=== PATIENT | female | born 1955 | race Caucasian/White ===

== ENCOUNTER 2016-10-12 13:19 | Outpatient (CLI) | payer BC | END 2016-10-12 13:20 | disposition home or self-care (01) | DX: Z12.31 Encounter for screening mammogram for malignant neoplasm of breast (principal) ==

== ENCOUNTER 2017-04-12 11:27 | Outpatient (CLI) | payer BC ==
--- NOTE | 2017-04-12 15:51 | XRAY Report ---
THREE VIEW CERVICAL SPINE: 04/12/2017 CLINICAL INDICATION: Chronic pain. FINDINGS: AP, lateral, and odontoid views of the cervical spine demonstrate moderate degenerative di sk disease, with disk space narrowing worst at C5-6. There is no evidence of acute fracture or sublux ation. The prevertebral soft tissues are unremarkable. IMPRESSION: MODERATE DEGENERATIVE CHANGES. JOB #: [id number] EXT JOB #:[id number]
--- NOTE | 2017-04-12 15:53 | XRAY Report ---
THREE VIEW THORACIC SPINE: 04/12/2017 CLINICAL INDICATION: Chronic pain. FINDINGS: AP, lateral, and swimmers views of the thoracic spine demonstrate moderate degenerative di sk disease. There is no evidence of compression fracture. No paraspinal hematoma is seen. IMPRESSION: MODERATE DEGENERATIVE CHANGES. JOB #: [id number] EXT JOB #:[id number]
--- NOTE | 2017-04-12 15:55 | XRAY Report ---
THREE VIEW LUMBAR SPINE: 04/12/2017 CLINICAL INDICATION: Chronic pain. FINDINGS: AP, lateral, and coned down views of the lumbar spine demonstrate mild degenerative disk a nd facet disease, with mild degenerative dextroscoliosis. There is no evidence of compression fractur e or subluxation. The bowel gas pattern is unremarkable. IMPRESSION: MILD DEGENERATIVE CHANGES, WITH MILD DEGENERATIVE DEXTROSCOLIOSIS. JOB #: [id number] EXT JOB #:[id number]
== END 2017-04-12 11:28 | disposition home or self-care (01) ==
LOC: DI.N 11:27
PROVIDERS: ATTEND Physician Assistant Medical
DX: M50.30 Other cervical disc degeneration, unspecified cervical region (principal); M51.34 Other intervertebral disc degeneration, thoracic region; M51.36 Other intervertebral disc degeneration, lumbar region; M47.896 Other spondylosis, lumbar region; M41.56 Other secondary scoliosis, lumbar region
CPT/HCPCS: 72040; 72072; 72100

== ENCOUNTER 2017-10-19 16:29 | Outpatient (CLI) | payer BC ==
--- NOTE | 2017-10-24 17:24 | Mammography Report ---
DIGITAL SCREENING MAMMOGRAM: 10/19/2017 CLINICAL INDICATION: A 62-year-old with history of late childbearing for screening. COMPARISON: 09/2016, 07/2015, 07/2014, 06/2010. TECHNIQUE: Routine CC and MLO projections were obtained of the breasts. FINDINGS: The breasts again demonstrate heterogeneously dense fibroglandular parenchyma bilaterally. A few punctate, typically benign calcifications are present. No suspicious masses, clustered microcalcifications, or regions of architectural distortion are identified. IMPRESSION: BENIGN FINDINGS. RECOMMENDATION: Routine annual screening unless otherwise clinically indicated. BIRADS category 2 benign findings. STANDARD QUALIFYING STATEMENTS 1. This examination was reviewed with the aid of Computed-Aided Detection (CAD). 2. A negative or benign imaging report should not delay biopsy if clinically suspicious findings are present. Consider surgical consultation if warranted. More than 5% of cancers are not identified by imaging. 3. Dense breasts may obscure an underlying neoplasm. TD: 10/24/2017 15:26
== END 2017-10-19 16:30 | disposition home or self-care (01) ==
LOC: DI.N 16:29
PROVIDERS: ATTEND Physician Assistant Medical
DX: Z12.31 Encounter for screening mammogram for malignant neoplasm of breast (principal)
CPT/HCPCS: 77067

== ENCOUNTER 2020-06-25 11:22 | Outpatient (CLI) | payer MEDICARE, OTHER ==
--- NOTE | 2020-06-25 16:49 | XRAY Report ---
PROCEDURE: Cervical Spine 2 View INDICATIONS: CHRONIC NECK PAIN TECHNIQUE: 3 view(s) of the cervical spine were acquired. COMPARISON: 04/12/2017 FINDINGS: Bones: No fractures or dislocations to the T5 level. The lateral masses of C1 appear intact on the odontoid view. No suspicious bony lesions. Multilevel cervical spondylitic changes are again noted with degenerative endplate changes and endplate osteophyte formation. Findings are most pronounced at C5-6 as before. No acute compression fractures. Soft tissues: No prevertebral soft tissue swelling. IMPRESSION: Multilevel cervical spondylosis most pronounced at C5-6. Degenerative changes have remained stable to slight interval progression. Reviewed by: Seferino Doll MD on 06/25/2020 4:48 PM PST Approved by: Seferino Doll MD on 06/25/2020 4:48 PM PST Station ID: [id number]
--- NOTE | 2020-06-25 16:51 | XRAY Report ---
PROCEDURE: Thoracic Spine 3 View INDICATIONS: THORACIC BACK PAIN TECHNIQUE: 3 views of the thoracic spine were acquired. COMPARISON: 04/12/2017. FINDINGS: Bones: No acute fractures or dislocations. No suspicious bony lesions. 12 pairs of ribs are noted, and appear intact where visualized. Stable appearance of mild multilevel thoracic spondylitic loomis es with degenerative endplate changes and prominent anterior endplate osteophyte formation. Soft tissues: No paravertebral stripe thickening. IMPRESSION: Stable radiographic appearance of multilevel thoracic spondylosis. Reviewed by: Seferino Doll MD on 06/25/2020 4:49 PM PST Approved by: Seferino Doll MD on 06/25/2020 4:49 PM PST Station ID: [id number]
== END 2020-06-25 23:59 | disposition home or self-care (01) ==
LOC: DI.WCP 11:22
PROVIDERS: ATTEND Physician Assistant Medical
DX: M47.812 Spondylosis without myelopathy or radiculopathy, cervical region (principal); M50.322 Other cervical disc degeneration at C5-C6 level; M47.814 Spondylosis without myelopathy or radiculopathy, thoracic region

== ENCOUNTER 2020-09-15 08:00 | Outpatient (CLI) | payer MEDICARE, OTHER ==
[2020-09-15 13:39] LABS: CHOL/HDL RATIO 2.7 (<4.4); CHOLESTEROL 252 mg/dL; HDL CHOLESTEROL 94 mg/dL; LDL CHOLESTEROL,CALCULATED 139 mg/dL; LDL/HDL RATIO 1.5 (<4.4); TRIGLYCERIDES 93 mg/dL; VLDL CHOLESTEROL 19 mg/dL
== END 2020-09-15 23:59 | disposition home or self-care (01) ==
LOC: LAB.WCP 08:00
PROVIDERS: ATTEND Physician Assistant Medical
DX: E78.2 Mixed hyperlipidemia (principal)
CPT/HCPCS: 36415; 80061; 83721

== ENCOUNTER 2021-01-28 15:04 | Outpatient (CLI) | payer MEDICARE, OTHER ==
--- NOTE | 2021-01-29 12:21 | Mammography Report ---
BILATERAL DIGITAL SCREENING MAMMOGRAM 3D/2D: 01/28/2021 CLINICAL: Routine screening. Comparison is made to exams dated: 10/19/2017 mammogram, 10/12/2016 mammogram, 08/27/2015 mammogram, mammogram - [facility], and 07/12/2010 mammogram - [facility]. There a re scattered fibroglandular elements in both breasts. No significant masses, calcifications, or other findings are seen in either breast. There has been no significant interval change. IMPRESSION: NEGATIVE There is no mammographic evidence of malignancy. A 1 year screening mammogram is recommended. This exam was interpreted at Station ID: [id number]. NOTE: For mammograms, a report in lay terms will be sent to the patient. Approximately 15% of breast malignancies will not be visualized mammographically. In the management of a palpable breast mass, a negative mammogram must not discourage biopsy of a clinically suspicious lesion. Electronically Signed By: Seferino [email or web address]:01/28/2021 16:22:30 ACR BI-RADS Category 1: Negative 3341F PARENCHYMAL PATTERN: (A) - The breast(s) demonstrate(s) scattered fibroglandular densities. BI-RADS CATEGORY: (1) - 1 RECOMMENDATION: (ANNUAL) - Recommend routine annual screening mammography. [id number] 1 year screening LATERALITY: (B)
== END 2021-01-28 15:05 | disposition home or self-care (01) ==
LOC: DI.N 15:04
DX: Z12.31 Encounter for screening mammogram for malignant neoplasm of breast (principal)

== ENCOUNTER 2021-07-29 08:39 | Outpatient (CLI) | payer MEDICARE ==
[2021-07-29 13:00] LABS: ALBUMIN 4.7 g/dL (3.2-5.5); ALBUMIN/GLOBULIN RATIO 1.8 (1.0-2.2); ALKALINE PHOSPHATASE 55 IU/L (42-121); ALT ALANINE AMINOTRANSFERASE 17 IU/L (10-60); AST ASPARTATE AMINOTRANSFERASE 22 IU/L (10-42); BILIRUBIN,TOTAL 1.1 mg/dL (0.2-1.0); BUN - BLOOD UREA NITROGEN 22 mg/dL (6-20); CALCIUM 9.3 mg/dL (8.5-10.3); CARBON DIOXIDE - CO2 27 mmol/L (21-32); CHLORIDE 101 mmol/L (101-111); CHOL/HDL RATIO 4.1 (<4.4); CHOLESTEROL 297 mg/dL; CREATININE 0.8 mg/dL (0.4-1.0); GFR - MDRD 72 (>89); GLUCOSE 99 mg/dL (70-100); HDL CHOLESTEROL 72 mg/dL; LDL CHOLESTEROL,CALCULATED 210 mg/dL; LDL/HDL RATIO 2.9 (<4.4); SODIUM 138 mmol/L (135-145); TOTAL PROTEIN 7.3 g/dL (6.7-8.2); TRIGLYCERIDES 77 mg/dL; VLDL CHOLESTEROL 15 mg/dL
== END 2021-07-29 08:40 | disposition home or self-care (01) ==
LOC: LAB.N 08:39
PROVIDERS: ATTEND Physician Assistant Medical
DX: E78.2 Mixed hyperlipidemia (principal)
CPT/HCPCS: 36415; 80053; 80061; 83721